=== PATIENT | female | born 1935 | race Caucasian/White ===

== ENCOUNTER 2017-06-06 20:37 | Emergency (ER) | payer MEDICARE, OTHER ==
[~2017-06-06] VITALS: Ht 170.2 cm; Wt 61.2 kg
[~2017-06-06 20:37] MED LIST: ASPI-807 PO; ROSU5TAB; TRAM50TA; VALS40TA4 PO
[2017-06-06 20:53] VITALS: BP 121/73
[2017-06-06] MEDS ORDERED: HYDROCODONE/APAP 5/325MG 1 EACH TABLET ONE (21:52)
[2017-06-06] MEDS ORDERED: HYDROCODONE/APAP 5/325MG 1 EACH TABLET PO ONE (22:00)
== END 2017-06-06 22:00 | disposition home or self-care (01) ==
LOC: ER 20:37
DX: S92.405A Nondisplaced unspecified fracture of left great toe, initial encounter for closed fracture (principal); I10 Essential (primary) hypertension; E78.00 Pure hypercholesterolemia, unspecified; Z79.82 Long term (current) use of aspirin; W20.8XXA Other cause of strike by thrown, projected or falling object, initial encounter; Y93.89 Activity, other specified; Y92.89 Other specified places as the place of occurrence of the external cause; Y99.8 Other external cause status
CPT/HCPCS: 73630; 99284; A4606; Z7610

== ENCOUNTER 2018-11-01 12:53 | Inpatient (IN) | payer MEDICARE, OTHER ==
[~2018-11-01] VITALS: Ht 142.2 cm; Wt 58.1 kg
[~2018-11-01 12:53] MED LIST changes: -ROSU5TAB; +ROSU5TAB PO; -TRAM50TA; +TRAM50TA PO
--- NOTE | 2018-11-01 12:54 | NUR ---
PT [id number], TRIPPED AND FELL IN THE PARKING LOT, -KO, C/O R KNEE PAIN, PT IS AAOX3, NOT IN RESPIRATORY DISTRESS, V/S STABLE, KEPT RESTED AND COMFORTABLE, WILL CONTINUE TO MONITOR.
--- NOTE | 2018-11-01 13:05 | NUR ---
JUAN LEO AT BEDSIDE FOR EVAL.
[2018-11-01] MEDS ORDERED: ONDANSETRON 4 MG TAB.RAPDIS ONE (13:09)
[2018-11-01] MEDS ORDERED: MORPHINE SULFATE INJ 2 MG/ML DISP.SYRIN ONE ×2 (13:09→13:44)
--- NOTE | 2018-11-01 13:15 | NUR ---
BRAND SPECIALIST AT BEDSIDE FOR XRAY.
[2018-11-01] MEDS ORDERED: MORPHINE SULFATE INJ 2 MG/ML DISP.SYRIN IM ONE (13:30)
[2018-11-01] MEDS ORDERED: ONDANSETRON 4 MG TAB.RAPDIS PO ONE (13:30)
[2018-11-01 13:58] LABS: BASOPHILS % (AUTO) 0.5 % (0.0-2.0); EOSINOPHILS % (AUTO) 0.6 % (0.0-6.0); HEMATOCRIT 42 % (33-45); HEMOGLOBIN 13.8 g/dL (11.5-14.8); LYMPHOCYTES # (AUTO) 1.1 /CMM (0.8-4.8); LYMPHOCYTES % (AUTO) 12.5 % (20.0-44.0); MEAN CORPUSCULAR HGB CONC 33 g/dl (31.0-36.0); MEAN CORPUSCULAR VOLUME 94 fL (82-100); MONOCYTES # (AUTO) 0.6 /CMM (0.1-1.30); MONOCYTES % (AUTO) 7.2 % (2.0-12.0); NEUTROPHILS # (AUTO) 6.8 /CMM (1.8-8.9); NEUTROPHILS % (AUTO) 79.2 % (43.0-81.0); PLATELET COUNT (AUTO) 218 /CMM (150-450); RED BLOOD CELL COUNT(AUTO) 4.46 MIL/uL (4.0-5.2); WHITE BLOOD COUNT (AUTO) 8.6 K/uL (4.3-11.0)
[2018-11-01] MEDS ORDERED: MORPHINE SULFATE INJ 2 MG/ML DISP.SYRIN IV ONE (14:00)
--- NOTE | 2018-11-01 14:00 | NUR ---
IV LINE ESTABLISHED, BLOOD DRAWNED AND SENT TO LAB.
[2018-11-01] MEDS ORDERED: HYDR-4354 PO (14:07)
[2018-11-01 14:11] LABS: CARBON DIOXIDE 29 mmol/L (21-32); CHLORIDE 103 mmol/L (98-107); GLUCOSE 109 mg/dL (74-106); POTASSIUM 4.6 mmol/L (3.5-5.1); SODIUM SERUM 137 mmol/L (136-145); UREA NITROGEN, BLOOD 24 mg/dL (7-18)
--- NOTE | 2018-11-01 14:48 | NUR ---
ASKED NURSING SUP FOR MEDSURG BED
--- NOTE | 2018-11-01 14:53 | NUR ---
NGOZI CERVANTES RN L AND D FOR THIS PATIENT
--- NOTE | 2018-11-01 15:58 | NUR ---
EPIC PAGED NORAH DNP
--- NOTE | 2018-11-01 16:02 | NUR ---
308-1 PATELLAR FRACTURE NORAH DNP
--- NOTE | 2018-11-01 16:34 | NUR ---
CALLED SHASHANK PAGED MEDICAL CODING INSTRUCTOR NORAH
--- NOTE | 2018-11-01 16:42 | NUR ---
CALLED LILLIANA FOR ROOM NUMBER FOR ADMISSION. [phone] GEORGE
--- NOTE | 2018-11-01 17:18 | NUR ---
REPORT GIVEN TO SARA MEJIA FOR YONIS.
[2018-11-01] MEDS ORDERED: MAG HYDROX/AL HYDROX/SIMETH 30 ML UDC PO PRN (18:00)
[2018-11-01] MEDS ORDERED: ONDANSETRON HCL/PF 4 MG/2 ML VIAL IVP PRN (18:00)
[2018-11-01] MEDS ORDERED: MAGNESIUM HYDROXIDE 30 ML UDC PO PRN (18:00)
[2018-11-01] MEDS ORDERED: Z GUARD REMEDY 2 OZ OINT TP PRN (18:00)
[2018-11-01] MEDS ORDERED: ZOLPIDEM TARTRATE 5 MG TABLET PO PRN (18:00)
--- NOTE | 2018-11-01 18:15 | NUR ---
MS STEAK TENDERIZER MACHINE NOTES Patient received from ER for right patellar fracture confirmed by imaging d/t fall in parking lot. Alert and oriented x4, Farsi preferred but understand basic macedonian. Complaints of pain on RLE and Left shoulder. Skin body assessment EXCEPT for back - refused to be assessed by patient due to pain. RLE on brace to keep immobilize. NPO after midnight for more test per DNP. Belongings checked by WAXER FLOOR. Photos taken. DNP made aware of arrival to unit. Assisted to make patient comfortable. Kept patient clean and dry. Safety measures in place. Bed in lowest position with bed alarm on and call light within reach. Will continue to monitor and assess patient. Will endorse to odell shift nurse Addendum: 11/01/18 at 1938 by ERWIN ALVAREZ RN Patient arrived in unit @1535. Endorsed to odell shift nurse. 134/68 69 18 98.2 95% room air
--- NOTE | 2018-11-01 19:30 | NUR ---
MSRN FULLY AWAKE, SEVERE RIGHT LEG PAIN UPON MINIMAL MOVEMENT. REPOSTIONED FOR COMFORT, PREFERS USING DIAPER TO VOID THAN BEDPAN SEC TO LEG PAIN. AFFECTED LEG WITH IMMOBILIZER, KEPT IN PLACE. SEEN BY TEACHER THEATER ARTS EARLIER, WILL KEEP PATIENT NPO ORDERED.
[2018-11-01 20:18] VITALS: BP 140/58
[2018-11-01] MEDS: IV NS 0.9% 1,000 ML IV PRN (20:20)
[2018-11-01] MEDS: MORPHINE SULFATE INJ 2 MG/ML DISP.SYRIN IV PRN (20:20)
--- NOTE | 2018-11-01 20:20 | NUR ---
MSRN MEDICATED WITH MORPHINE 2 MG IVP FOR RIGHT LEG PAIN. COMPLETE BEDREST. KEPT COMFORTABLE.
[2018-11-01] MEDS: HYDROCODONE/APAP 5/325MG 1 EACH TABLET PO PRN (23:34)
--- NOTE | 2018-11-01 23:36 | NUR ---
MSRN VERBALIZES SEVERE RIGHT LEG PAIN, NORCO 1 TAB PO GIVEN. PAIN MGT REVIEWED WITH PATIENT
[2018-11-02] MEDS: MORPHINE SULFATE INJ 2 MG/ML DISP.SYRIN IV PRN ×3 (00:51→15:57)
--- NOTE | 2018-11-02 00:59 | NUR ---
MSRN PER PATIENT NORCO DID NOT HELP HER PAIN. WANTED TO TAKE OWN MED, STATED SHE TAKES TRAMADOL AT HOME . HAVE HOME MEDS KEPT FOR PHARMACY SAFETY. MORPHINE 2MG IVP ADMINISTERED THIS TIME. STAYED WITH PATIENT FOR AWHILE.
--- NOTE | 2018-11-02 06:00 | NUR ---
MSRN AWAKENED WITH SEVERE PAIN ON RIGHT KNEE, MORPHINE 2MG IVP GIVEN SLOWLY.
[2018-11-02 06:45] LABS: BASOPHILS % (AUTO) 0.1 % (0.0-2.0); HEMATOCRIT 40 % (33-45); HEMOGLOBIN 13.4 g/dL (11.5-14.8); LYMPHOCYTES % (AUTO) 9.9 % (20.0-44.0); MEAN CORPUSCULAR HGB CONC 34 g/dl (31.0-36.0); MEAN CORPUSCULAR VOLUME 93 fL (82-100); MONOCYTES # (AUTO) 0.7 /CMM (0.1-1.30); MONOCYTES % (AUTO) 7.1 % (2.0-12.0); NEUTROPHILS # (AUTO) 8.1 /CMM (1.8-8.9); NEUTROPHILS % (AUTO) 82.9 % (43.0-81.0); PLATELET COUNT (AUTO) 210 /CMM (150-450); RED BLOOD CELL COUNT(AUTO) 4.28 MIL/uL (4.0-5.2); WHITE BLOOD COUNT (AUTO) 9.8 K/uL (4.3-11.0)
--- NOTE | 2018-11-02 07:10 | NUR ---
MSRN ENDORESED TO INCOMING RN FOR CONTINUITY OF CARE
[2018-11-02 07:17] LABS: CALCIUM, SERUM 8.7 mg/dL (8.5-10.1); CARBON DIOXIDE 26 mmol/L (21-32); CHLORIDE 102 mmol/L (98-107); GLUCOSE 129 mg/dL (74-106); MAGNESIUM 1.8 mg/dL (1.8-2.4); PHOSPHORUS 3.7 mg/dL (2.5-4.9); POTASSIUM 4.9 mmol/L (3.5-5.1); SODIUM SERUM 136 mmol/L (136-145); UREA NITROGEN, BLOOD 22 mg/dL (7-18)
[2018-11-02 07:25] LABS: CHOLESTEROL 94 mg/dL (<200); HDL CHOLESTEROL 44 mg/dL (40-60); LDL 47 mg/dL (0-99); TRIGLYCERIDES 30 mg/dL (30-150)
--- NOTE | 2018-11-02 07:30 | NUR ---
RN MS NOTES PT IN BED, AWAKE, ALERT AND ORIENTED, NOT IN DISTRESS, PT WANTS TO SEE THE DOCTOR, EXPLAINED PLAN OF CARE TO PT, CALL LIGHT WITHIN REACH, NEEDS ATTENDED.
[2018-11-02 08:00] VITALS: BP 133/65
[2018-11-02] MEDS: ASPIRIN 81 MG TAB.CHEW PO SCH (08:44)
[2018-11-02] MEDS: VALSARTAN 40 MG TABLET PO SCH (08:44)
[2018-11-02] MEDS: ATORVASTATIN 10 MG TABLET PO SCH (08:44)
[2018-11-02] MEDS: HYDROCODONE/APAP 5/325MG 1 EACH TABLET PO PRN ×2 (08:53→18:49)
[2018-11-02] MEDS: IV NS 0.9% 1,000 ML IV PRN ×2 (08:57→21:40)
[2018-11-02] MEDS ORDERED: VALSARTAN 40 MG TABLET PO SCH (09:00)
--- NOTE | 2018-11-02 11:44 | NUR ---
RN MS NOTES PT IN BED, NO COMPLAINT AT THIS TIME, NOT IN DISTRESS, SEEN BY KB LEO, PLAN OF CARE DISCUSSED WITH PT, VERBALIZED UNDERSTANDING.
[2018-11-02 16:00] VITALS: BP 148/67
--- NOTE | 2018-11-02 19:00 | NUR ---
RN MS NOTES PT IN BED, AWAKE, ALERT AND ORIENTED, PAIN MEDS GIVEN FOR PAIN MANAGEMENT, RIGHT LEG IMMOBILIZER IN PLACE AT ALL TIMES, NOT IN DISTRESS, RECEIVED ORDERS FROM KB LEO TO OBTAIN CONSENT FOR ORIF OF RIGHT PATELLAR FX TO BE DONE ON WEDNESDAY AT 2PM BY DR. SERNA, PT INFORMED, CONSENTS SIGNED, PM CARE PROVIDED, ALL NEEDS ATTENDED.
--- NOTE | 2018-11-02 19:30 | NUR ---
MS RN NOTES RECEIVED ON BED A/O X4.FARSI SPEAKING,UNDERSTAND GUATEMALAN.S/P FALL AT PARKING LOT AND SUSTAINED RIGHT PATELLAR FRACTURE,PLANNED SURGERY ON SATURDAY 11/[address] SERNA,CONSENT ON CHART.IVF INFUSING WELL ON LEFT AC #20 VIA IV PUMP.PAIN @7/10 ON PAIN SCALE,WAS JUST MEDICATED WITH NORCO 5/10 @1849.CALL LIGHT IN REACH,NEEDS ANTICIPATED.
[2018-11-02 20:00] VITALS: BP 156/66
--- NOTE | 2018-11-02 22:00 | NUR ---
MS RN NOTES OFFERED TO BE REPOSITION BUT REFUSED.RIGHT KNEE IMMOBILIZER IN USED.
[2018-11-03] MEDS: MORPHINE SULFATE INJ 2 MG/ML DISP.SYRIN IV PRN ×2 (00:19→10:34)
--- NOTE | 2018-11-03 00:19 | NUR ---
MS RN NOTES PAIN MANAGEMENT C/O PAIN ON RIGHT LEG 8/10 ON PAIN SCALE,MORPHINE 2MG IV GIVEN ORDERED FOR SEVERE PAIN
[2018-11-03] MEDS: HYDROCODONE/APAP 5/325MG 1 EACH TABLET PO PRN (03:22)
--- NOTE | 2018-11-03 03:27 | NUR ---
RN NOTES COMPLAINED OF PAIN ON THE RIGHT LEG- NORCO 5/325MG PO GIVEN ORDERED, V/S STABLE
--- NOTE | 2018-11-03 04:00 | NUR ---
MS RN NOTES C/O NO BOWEL MOVEMENT FOR 10 DAYS,OFFERED MILK OF MAGNESIA BUT REFUSED.
--- NOTE | 2018-11-03 06:06 | NUR ---
MS RN NOTES ON BED SLEEPING,SNORING THIS TIME WITH NORCO.IVF IN PROGRESS.IMMOBILIZER STILL IN PLACE ON THE RIGHT LEG AWAITING SURGICAL INTERVENTION ON WEDNESDAY.IN NO ACUTE DISTRESS.CALL LIGHT IN REACH,NEEDS ATTENDED.WILL ENDORSE TO DAY NURSE FOR YONIS
[2018-11-03 06:33] LABS: BASOPHILS % (AUTO) 0.2 % (0.0-2.0); EOSINOPHILS % (AUTO) 0.3 % (0.0-6.0); HEMATOCRIT 41 % (33-45); HEMOGLOBIN 13.6 g/dL (11.5-14.8); LYMPHOCYTES # (AUTO) 1.1 /CMM (0.8-4.8); LYMPHOCYTES % (AUTO) 11.1 % (20.0-44.0); MEAN CORPUSCULAR HGB CONC 33 g/dl (31.0-36.0); MEAN CORPUSCULAR VOLUME 93 fL (82-100); MONOCYTES # (AUTO) 0.9 /CMM (0.1-1.30); MONOCYTES % (AUTO) 8.7 % (2.0-12.0); NEUTROPHILS # (AUTO) 8.1 /CMM (1.8-8.9); NEUTROPHILS % (AUTO) 79.7 % (43.0-81.0); PLATELET COUNT (AUTO) 213 /CMM (150-450); RED BLOOD CELL COUNT(AUTO) 4.38 MIL/uL (4.0-5.2); WHITE BLOOD COUNT (AUTO) 10.2 K/uL (4.3-11.0)
[2018-11-03 07:04] LABS: CALCIUM, SERUM 8.2 mg/dL (8.5-10.1); CARBON DIOXIDE 27 mmol/L (21-32); CHLORIDE 107 mmol/L (98-107); CREATININE 0.8 mg/dL (0.6-1.3); GLUCOSE 121 mg/dL (74-106); MAGNESIUM 1.9 mg/dL (1.8-2.4); POTASSIUM 4.2 mmol/L (3.5-5.1); SODIUM SERUM 140 mmol/L (136-145); UREA NITROGEN, BLOOD 18 mg/dL (7-18)
--- NOTE | 2018-11-03 07:20 | NUR ---
M/S RN NOTES PATIENT AWAKE IN BED, NO RESPIRATORY DISTRESS NOTED, DENIES ANY PAIN AT THIS TIME. SKIN WARM TO TOUCH. IVF OF NS INFUSING AT 75ML/HR ON THE LAC #20G. PATIENT'S NEEDS ATTENDED. BED ON LOWEST LOCKED POSITION, CALL LIGHT WITHIN REACH. WILL CONTINUE TO MONITOR.
--- NOTE | 2018-11-03 07:45 | NUR ---
M/S RN NOTES SWETHA QUILES PAC ORDERED FOR PATIENT TO BE NPO FOR A POSSIBLE SURGERY THIS AFTERNOON.
[2018-11-03 08:00] VITALS: BP 151/65
[2018-11-03] MEDS: ASPIRIN 81 MG TAB.CHEW PO SCH (09:00)
[2018-11-03] MEDS: VALSARTAN 40 MG TABLET PO SCH (09:00)
[2018-11-03] MEDS: ATORVASTATIN 10 MG TABLET PO SCH (09:00)
--- NOTE | 2018-11-03 14:15 | NUR ---
M/S RN NOTES PATIENT WENT TO SURGERY, VSS, NO RESPIRATORY DISTRESS, DENIES ANY PAIN AT THIS. PATIENT'S CHART AND REPORT GIVEN TO SITA.
[2018-11-03] MEDS ORDERED: MIDAZOLAM HCL 2 MG/2ML VIAL ONE (14:28)
[2018-11-03] MEDS ORDERED: FENTANYL PF 250MCG/5ML AMPUL ONE (14:29)
[2018-11-03] MEDS ORDERED: BACITRACIN 50000 UNITS/VIAL ONE (15:24)
[2018-11-03] MEDS ORDERED: BUPIVACAINE 0.5 % PF 150 MG/30 ML VIAL ONE (15:24)
[2018-11-03] MEDS ORDERED: hydrALAZINE HCL IV 20 MG VIAL ONE (17:39)
[2018-11-03 17:40] VITALS: BP 141/68
--- NOTE | 2018-11-03 17:40 | NUR ---
M/S RN NOTES PATIENT CAME FROM SURGERY, VITAL SIGNS TAKEN BP 141/68, HR 92, T 98.4, RR 18, O2 97% NO RESPIRATORY DISTRESS NOTED, NO C/O PAIN AT THIS TIME. NO NAUSEA OR VOMITING. PATIENT'S DRESSING CLEAN, DRY, AND INTACT. WILL CONTINUE TO MONITOR.
[2018-11-03 17:55] VITALS: BP 138/68
[2018-11-03 18:10] VITALS: BP 136/67
[2018-11-03] MEDS: IV LR 1000 ML 1,000 ML IV PRN (18:12)
[2018-11-03] MEDS ORDERED: HYDROCODONE/APAP 5/325MG 1 EACH TABLET PO PRN (18:30)
[2018-11-03 18:40] VITALS: BP 140/68
--- NOTE | 2018-11-03 19:15 | NUR ---
M/S RN NOTES PATIENT RESTING, LYING IN BED. NO RESPIRATORY DISTRESS NOTED, NO C/O PAIN. SKIN WARM TO TOUCH. IVF OF LR INFUSING AT 75ML/HR ON THE RFA #22G, INTACT, NO REDNESS, NO INFILTRATION. PATIENT'S NEEDS ATTENDED. MD ORDERS CARRIED OUT. BED ON LOWEST LOCKED POSITION, CALL LIGHT WITHIN REACH. WILL ENDORSE TO ONCOMING NURSE.
--- NOTE | 2018-11-03 19:30 | NUR ---
MS RN NOTES RECEIVED ON SITTING POSITION IN BED,A/O X4,BREATHING NORMAL,S/P ORIF OF RIGHT PATELLAR FRACTURE TODAY 11/03/2018.SURGICAL SITE WITH DRESSING INTACT WRAPPED WITH ELASTIC BANDAGE.KNEE IMMOBILIZER IN USED.DENIES PAIN AT THE MOMENT.O2 SAT 97% ON 2 LITERS /NC.WILL CONTINUE TO MONITOR FOR PAIN MANAGEMENT.
[2018-11-03 20:00] VITALS: BP 145/62
[2018-11-03] MEDS: ANCEF 1 GM/50 ML D5W IV SCH ×2 (21:32)
--- NOTE | 2018-11-03 22:00 | NUR ---
MS RN NOTES AWAKE,OFFERED PAIN MEDICINE BUT REFUSED.
[2018-11-04] MEDS: ANCEF 1 GM/50 ML D5W IV SCH ×2 (05:30)
--- NOTE | 2018-11-04 06:25 | NUR ---
MS RN NOTES SLEPT WELL AT NIGHT,PAIN TOLERABLE.IS AT BEDSIDE.ENCOURAGED TO USE IT WHILE AWAKE FOR LUNG EXERCISE.DAIGLE CATH DRAINS WELL.KNEE IMMOBILIZER IN USED.IVF IN PROGRESS.IN NO ACUTE DISTRESS.WILL ENDORSE TO MILADIS RUIZ FOR YONIS.
--- NOTE | 2018-11-04 07:30 | NUR ---
MS RN Opening Note Patient currently resting in bed with eyes open in Semi-Fowlers position, no acute distress noted. Aspiration precautions maintained. Easily arousable to verbal and tactile stimuli. Alert and oriented x 4, able to make needs known. Respirations even and unlabored on room air. Peripherial IV access to the right forearm arm, intact, patent and infusing fluids. Dressing in place to right leg, knee immobilizer in place. Incentive spirometer at bedside. Hearn catheter in place, intact and patent draining clear, yellow urine. Safety and fall precautions in place: bed in lowest and locked position, side rails up x2, bed alarm on, call light and personal possessions in reach, room well lit, floor clutter-free. Patient currently clean, dry and comfortable, on low-air loss mattress. Will continue to monitor and intervene as needed.
[2018-11-04 08:00] VITALS: BP 134/70
[2018-11-04] MEDS: MORPHINE SULFATE INJ 2 MG/ML DISP.SYRIN IV PRN ×3 (09:09→20:34)
[2018-11-04] MEDS: ASPIRIN 81 MG TAB.CHEW PO SCH (09:18)
[2018-11-04] MEDS: ATORVASTATIN 10 MG TABLET PO SCH (09:18)
[2018-11-04] MEDS: VALSARTAN 40 MG TABLET PO SCH (09:19)
[2018-11-04] MEDS: ENOXAPARIN SODIUM 40 MG/0.4 ML DISP.SYRIN SQ SCH (09:38)
[2018-11-04 13:43] LABS: BASOPHILS % (AUTO) 0.1 % (0.0-2.0); HEMATOCRIT 35 % (33-45); HEMOGLOBIN 11.6 g/dL (11.5-14.8); LYMPHOCYTES # (AUTO) 0.9 /CMM (0.8-4.8); LYMPHOCYTES % (AUTO) 8.3 % (20.0-44.0); MEAN CORPUSCULAR HGB CONC 33 g/dl (31.0-36.0); MEAN CORPUSCULAR VOLUME 93 fL (82-100); MONOCYTES # (AUTO) 1.5 /CMM (0.1-1.30); MONOCYTES % (AUTO) 13.6 % (2.0-12.0); NEUTROPHILS # (AUTO) 8.7 /CMM (1.8-8.9); PLATELET COUNT (AUTO) 191 /CMM (150-450); RED BLOOD CELL COUNT(AUTO) 3.76 MIL/uL (4.0-5.2); WHITE BLOOD COUNT (AUTO) 11.2 K/uL (4.3-11.0)
[2018-11-04] MEDS: IV LR 1000 ML 1,000 ML IV PRN (14:51)
[2018-11-04 16:00] VITALS: BP 132/70
--- NOTE | 2018-11-04 18:45 | NUR ---
M/S RN NOTES PATIENT AWAKE IN BED, IN NO RESPIRATORY DISTRESS, NO C/O PAIN AT THIS TIME. IVF OF LR RUNNING AT 75ML/HR. SKIN WARM TO TOUCH. DRESSING CLEAN, DRY AND INTACT. KNEE IMMOBILIZER ON THE RT LEG ORDERED AND OFFLOADED WITH A PILLOW. F/C DRAINING CLEAR, YELLOW URINE. PATIENT'S NEEDS MET. BED ON LOWEST LOCKED POSITION, CALL LIGHT WITHIN REACH. WILL ENDORSE TO ONCOMING NURSE.
--- NOTE | 2018-11-04 19:00 | NUR ---
MS RN NOTES RECEIVED LAYING COMFORTABLY ON BED ON FOWLERS POSITION,A/O X4,BREATHING REGULAR NOT IN ANY FORM OF DISTRESS.S/P ORIF RIGHT PATELLAR FRACTURE 0N 6/6,DRESSING INTACT AND DRY,KNEE IMMOBILIZER IN USED ELEVATED ON PILLOW.DENIES PAIN AT THE MOMENT.DAIGLE CATHETER IN PLACE DRAINING YELLOWISH URINE OUTPUT.IVF LR AT75ML HR RATE IN PROGRESS ON RIGHT ARM,SITE PATENT.CALL LIGHT IN REACH,NEEDS ANTICIPATED.
[2018-11-04 20:00] VITALS: BP 148/64
[2018-11-04 20:17] VITALS: BP 148/64
[2018-11-04] MEDS: ACETAMINOPHEN 325 MG TABLET PO PRN (20:34)
--- NOTE | 2018-11-04 20:34 | NUR ---
MS RN NOTES PAIN MANAGEMENT C/O RIGHT LEG POST OP PAIN 10/10 ON PAIN SCALE,MORPHINE 2MG IV GIVEN ORDERED.
--- NOTE | 2018-11-04 20:45 | NUR ---
MS RN NOTES ORAL TEMP OF 100.1,TYLENOL 650MG PO GIVEN ORDERED.
[2018-11-05] MEDS: IV LR 1000 ML 1,000 ML IV PRN (04:22)
[2018-11-05] MEDS: MORPHINE SULFATE INJ 2 MG/ML DISP.SYRIN IV PRN ×2 (05:04→09:51)
--- NOTE | 2018-11-05 05:04 | NUR ---
MS RN NOTES C/O PAIN ON RIGHT LEG 8/10 ON PAIN SCALE.MORPHINE 2MG IV GIVEN. MORNING CARE RENDERED WITH ANNE-MARIE VENDING MACHINE TECHNICIAN,TOLERATED WELL.NO REDNESS ON SACRAL AREA,APPLIED MEPILEX ON TAILBONE AREA FOR SKIN PROTECTION.
--- NOTE | 2018-11-05 06:02 | NUR ---
MS RN NOTES ON BED SLEEPING.PAIN MANAGEMENT EFFECTIVE.ENCOURAGED TO USE INCENTIVE SPIROMETRY FOR LUNG EXERCISE WHILE AWAKE.LATEST ORAL TEMPERATURE 98.3.NO KNEE FLEXION FOR [address] BOYLE AND FOLLOW UP IN 2 WEEKS FOR STAPLE REMOVAL.POSSIBLE D/C TO [facility] FOR AMBULATION.IN NO ACUTE DISTRESS.WILL ENDORSE TO DAY NURSE FOR YONIS.
[2018-11-05 07:24] LABS: ALANINE AMINOTRANSFERASE 15 U/L (12-78); ALBUMIN 2.1 g/dL (3.4-5.0); ALKALINE PHOSPHATASE 51 U/L (46-116); ASPARTATE AMINOTRANSFERASE 21 U/L (15-37); BILIRUBIN,TOTAL 1.5 mg/dL (0.2-1.0); CALCIUM, SERUM 8.2 mg/dL (8.5-10.1); CARBON DIOXIDE 28 mmol/L (21-32); CHLORIDE 105 mmol/L (98-107); CREATININE 0.7 mg/dL (0.6-1.3); GLUCOSE 100 mg/dL (74-106); MAGNESIUM 1.8 mg/dL (1.8-2.4); PHOSPHORUS 2.3 mg/dL (2.5-4.9); POTASSIUM 3.9 mmol/L (3.5-5.1); SODIUM SERUM 137 mmol/L (136-145); TOTAL PROTEIN, SERUM 5.8 g/dL (6.4-8.2); UREA NITROGEN, BLOOD 14 mg/dL (7-18)
--- NOTE | 2018-11-05 07:30 | NUR ---
RN MS NOTES PT IN BED, ASLEEP, EASY TO AROUSE, ALERT AND ORIENTED, NO COMPLAINTS AT THIS TIME, RESPIRATIONS NORMAL, CALL LIGHT WITHIN REACH, IMMOBILIZER ON AT RIGHT KNEE, KEPT COMFORTABLE, NEEDS ATTENDED.
[2018-11-05 08:00] VITALS: BP 145/72
[2018-11-05] MEDS: ATORVASTATIN 10 MG TABLET PO SCH (08:39)
[2018-11-05] MEDS: VALSARTAN 40 MG TABLET PO SCH (08:39)
[2018-11-05] MEDS: ASPIRIN 81 MG TAB.CHEW PO SCH (08:39)
[2018-11-05] MEDS: ENOXAPARIN SODIUM 40 MG/0.4 ML DISP.SYRIN SQ SCH (08:48)
--- NOTE | 2018-11-05 10:19 | NUR ---
RN MS NOTES PT IN BED, AWAKE, ALERT AND ORIENTED, PAIN MEDICATION GIVEN FOR PAIN MANAGEMENT, SEEN BY DR. ALMAZAN, NEW ORDERS GIVEN, PT SEEN BY PHYSICAL THERAPIST, CALL LIGHT WITHIN REACH, NEEDS ATTENDED.
[2018-11-05] MEDS ORDERED: ALBUTEROL FS 2.5 MG/3 ML VIAL.NEB NEB PRN (10:30)
[2018-11-05] MEDS ORDERED: IPRATROPIUM NEB FS 0.5 MG/2.5 ML AMPUL.NEB NEB PRN (10:30)
[2018-11-05] MEDS ORDERED: K PHOS NEUTRAL 250 MG TABLET PO ONE (13:00)
[2018-11-05] MEDS ORDERED: POLYETHYLENE GLYCOL 3350 17 GM POWD.PACK PO PRN (15:30)
[2018-11-05] MEDS ORDERED: BISACODYL SUPP (10 MG) 10 MG/SUPP.RECT SUPP.RECT RC PRN (15:30)
[2018-11-05 16:00] VITALS: BP 142/69
--- NOTE | 2018-11-05 18:03 | NUR ---
RN MS NOTES PT IN BED, RESTING, NO COMPLAINT OF PAIN AT THIS TIME, GRANDSON AT BEDSIDE, COMPLAINS OF CONSTIPATION, DR. ALMAZAN INFORMED, ORDERS GIVEN, NOTED AND CARRIED OUT, PM CARE PROVIDED, F/C IN PLACE, DRAINING WELL, TOLERATING CURRENT DIET WELL, CALL LIGHT WITHIN REACH.
--- NOTE | 2018-11-05 18:10 | NUR ---
RN MS NOTES PT STILL WITH WHEEZING, NO COMPLAINT OF SOB, OFFERED BREATHING TREATMENT 2X BUT PT REFUSED, STATED THAT SHE DOES NOT NEED IT NOW, NO SHORTNESS OF BREATH NOTED.
[2018-11-05] MEDS: ACETAMINOPHEN 325 MG TABLET PO PRN (19:57)
[2018-11-05 20:00] VITALS: BP 143/74
--- NOTE | 2018-11-05 20:00 | NUR ---
MS RN NOTE: PATIENT RESTING IN BED NO ACUTE DISTRESS NOTED. BREATHING EVEN AND UNLABORED, NO SOB NOTED. IV TO RFA IN PLACE. PATIENT NOTED WITH TEMPERATURE OF 100.1, TYLENOL 650MG ORAL GIVEN PER MD ORDER. COOLING MEASURES PROVIDED. DAIGLE CATHETER IN PLACE, EMPTY AT THIS TIME. BED LOCKED AND IN LOWEST POSITION, CALL LIGHT IN REACH. WILL CONTINUE TO MONITOR.
--- NOTE | 2018-11-05 22:30 | NUR ---
MS RN NOTE: PATIENT TEMPERATURE RECHECKED, NOW 97.8. WILL CONTINUE TO MONITOR.
--- NOTE | 2018-11-06 06:05 | NUR ---
MS RN NOTE: PATIENT RESTING IN BED NO ACUTE DISTRESS NOTED. BREATHING EVEN AND UNLABORED, NO SOB NOTED. IV TO RFA IN PLACE. DAIGLE CATHETER IN PLACE. BED LOCKED AND IN LOWEST POSITION, CALL LIGHT IN REACH. WILL ENDORSE TO DAY NURSE TO CONTINUE WITH PLAN OF CARE.
--- NOTE | 2018-11-06 07:29 | NUR ---
Nurse Notes: report from the night nurse Shirin Guevara RN, IV was stopped. is ordered to infusing at 75 cc per hour. Knee Immoblizer to be worn for 2 weeks. No Flexion.
[2018-11-06 08:00] VITALS: BP 152/55
[2018-11-06] MEDS: MORPHINE SULFATE INJ 2 MG/ML DISP.SYRIN IV PRN (08:14)
--- NOTE | 2018-11-06 08:14 | NUR ---
Nurse Notes: patient asked for her Morphine 2 mg IV, patient does not want her [place]. complaining of pain in right patella.
[2018-11-06] MEDS: ATORVASTATIN 10 MG TABLET PO SCH (08:53)
[2018-11-06] MEDS: ASPIRIN 81 MG TAB.CHEW PO SCH (09:01)
[2018-11-06] MEDS: VALSARTAN 40 MG TABLET PO SCH (09:01)
[2018-11-06 09:41] VITALS: BP 136/65
[2018-11-06] MEDS: ENOXAPARIN SODIUM 40 MG/0.4 ML DISP.SYRIN SQ SCH (10:04)
[2018-11-06 16:00] VITALS: BP 129/58
--- NOTE | 2018-11-06 16:50 | NUR ---
Nurse Notes: patient was given Dulcolax suppository, patient stated had no bowel movement for 14 days. once dulcolax suppository was placed. hard stool was felt. six pieces of stool was removed, size of small elise, diaper was kept on. will get order for stool softener
[2018-11-06] MEDS: DOCUSATE SODIUM 100 MG CAPSULE PO SCH (17:34)
--- NOTE | 2018-11-06 19:00 | NUR ---
MS RN NOTE RECEIVED PT IN STABLE CONDITION, A&0 X3-4. NO SIGNS OF SOB OR DISTRESS, PT. STATES PAIN IS TOLERABLE. CURRENTLY FINISHING HER DINNER. ALL CURRENT NEEDS ATTENDED TO. BED LOW, LOCKED, UPPER RAILS UP, AND CALL LIGHT WITHIN REACH. WILL CONT. TO MONITOR.
--- NOTE | 2018-11-06 19:05 | NUR ---
SHIFT REPORT: report given to the night nurse Savannah RUIZ. patient is resting in bed, was able to have more small elise of stool. stool softener was given,
[2018-11-06 20:09] VITALS: BP 140/71
--- NOTE | 2018-11-07 06:57 | NUR ---
MS RN NOTE PT IN STABLE CONDITION, A&0 X3-4. NO SIGNS OF SOB OR DISTRESS, NO C/O PAIN. CURRENTLY IN BED, AWAKE. ALL CURRENT NEEDS ATTENDED TO. BED LOW, LOCKED, UPPER RAILS UP, AND CALL LIGHT WITHIN REACH. WILL CONT. TO MONITOR AND ENDORSE TO NEXT SHIFT FOR YONIS.
[2018-11-07 08:00] VITALS: BP 143/72
--- NOTE | 2018-11-07 08:00 | NUR ---
PATIENT NOTED WITH F/C MORE THAN 24H POSTOP. WILL NOTIFY
[2018-11-07] MEDS: ASPIRIN 81 MG TAB.CHEW PO SCH (08:56)
[2018-11-07] MEDS: DOCUSATE SODIUM 100 MG CAPSULE PO SCH (08:56)
[2018-11-07 08:57] VITALS: BP 143/72
[2018-11-07] MEDS: VALSARTAN 40 MG TABLET PO SCH (08:57)
[2018-11-07] MEDS: ATORVASTATIN 10 MG TABLET PO SCH (08:57)
[2018-11-07] MEDS: ENOXAPARIN SODIUM 40 MG/0.4 ML DISP.SYRIN SQ SCH (09:02)
--- NOTE | 2018-11-07 10:54 | NUR ---
DAIGLE CATH REMOVED PER NORAH Jackson
[2018-11-07] MEDS: MORPHINE SULFATE INJ 2 MG/ML DISP.SYRIN IV PRN ×2 (12:34→18:15)
[2018-11-07] MEDS ORDERED: Amox/Clavulanate PO (14:11)
--- NOTE | 2018-11-07 16:18 | NUR ---
REPORT CALLED TO KEL RUIZ FROM [facility]
--- NOTE | 2018-11-07 18:15 | NUR ---
PATIENT CLEARED FOR D/C TO REHAB BY . PATIENT ALERT AND ORIENTED X4, VS ARE STABLE AND WITHIN NORMAL RANGE, PATIENT ON ROOM AIR SATURATING ABOVE 96%. RIGHT KNEE IMMOBILIZER IN PLACE. DRESSING CHANGED, PICTURE TAKEN AND PLACED IN THE CHART.PATIENT INSTRUCTED TO FOLLOWUP with PCP WITHIN ONE WEEK AT [facility], FOLLOWUP WITH Dr. Henry WITHIN 1-2 WEEKS. No flexion of right knee x2 weeks, wear knee immobilizer at all times, PT per PCP with [facility] RLE with knee immobilizer at [facility].PATIENT VERBALIZED UNDERSTANDING. DISCHARGE PAPERS SIGHED, VALUABLE FORM SIGHED; ALL BELONGINGS WITH THE PATIENT INCLUDING 2 HOME MEDS. IV LINE REMOVED , ID WRIST BAND REMOVED. PATIENT PREMEDICATED BEFORE TRANSPORTATION. FAMILY INFORMED. PATIENT PICKED UP BY AMBULANCE.
[2018-11-07] MEDS ORDERED: AMOX/CLAVULANATE 875 MG TABLET PO SCH (21:00)
== END 2018-11-07 18:31 | DRG 516 ==
LOC: ER 12:54 → MED 16:25
PROVIDERS: ADMIT Hospitalist; ATTEND Hospitalist
PROC: 0QSD04Z Reposition Right Patella with Internal Fixation Device, Open Approach (ICD-10-PCS; principal; 2018-11-03)
DX: S82.041A Displaced comminuted fracture of right patella, initial encounter for closed fracture (principal); E44.1 Mild protein-calorie malnutrition; W01.0XXA Fall on same level from slipping, tripping and stumbling without subsequent striking against object, initial encounter; E78.5 Hyperlipidemia, unspecified; Y92.481 Parking lot as the place of occurrence of the external cause; I10 Essential (primary) hypertension; Z91.81 History of falling; Z96.641 Presence of right artificial hip joint; E83.39 Other disorders of phosphorus metabolism; Z68.28 Body mass index [BMI] 28.0-28.9, adult; K59.00 Constipation, unspecified; R06.2 Wheezing
CPT/HCPCS: 36415; 71045-TC; 73030-TC; 73070-TC; 73502; 73552; 73560-TC; 80048-TC; 80053-TC; 80061-TC; 82962-TC; 83735-TC; 84100-TC; 85025-TC; 85730-TC; 87081-TC; 93971-TC; 97110-TC; 97112-TC; 97116-TC; 97530-TC; A6402; G0378; J0360; J0690; J1650; J2250; J2270; J2405; J2704; J3010; J3490; J7030; J7060; J7120; Q0162

== ENCOUNTER 2020-11-06 17:56 | Inpatient (IN) | payer MEDICARE, OTHER ==
[~2020-11-06] VITALS: Ht 147.3 cm; Wt 57.8 kg
[~2020-11-06 17:56] MED LIST changes: +Amox/Clavulanate PO; +HYDR-4354 PO
--- NOTE | 2020-11-06 18:15 | NUR ---
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 97% ON 2L NC. PATIENT ASSISTED TO BED, REMOVED O2 WITH SPO2 OF 85% ON ROOM AIR. OXYGEN PLACED BACK ON FOR 4LPM VIA NC.
[2020-11-06] MEDS ORDERED: NEBI10TA2 PO (18:17)
[2020-11-06] MEDS ORDERED: ICOS1CAP PO (18:17)
[2020-11-06] MEDS ORDERED: CHOL200059 PO (18:17)
[2020-11-06] MEDS ORDERED: CLON0.1T PO (18:17)
[2020-11-06] MEDS ORDERED: IRBE300T19 PO (18:17)
[2020-11-06] MEDS ORDERED: MAGN400T26 PO (18:17)
[2020-11-06] MEDS ORDERED: AMLO-212 PO (18:17)
[2020-11-06 18:45] LABS: BASOPHILS # (AUTO) 0.1 /CMM (0.0-0.2); BASOPHILS % (AUTO) 0.6 % (0.0-2.0); EOSINOPHILS % (AUTO) 1.5 % (0.0-6.0); HEMATOCRIT 40 % (33-45); HEMOGLOBIN 13.1 g/dL (11.5-14.8); LYMPHOCYTES # (AUTO) 1.2 /CMM (0.8-4.8); LYMPHOCYTES % (AUTO) 11.6 % (20.0-44.0); MEAN CORPUSCULAR HGB CONC 33 g/dl (31.0-36.0); MEAN CORPUSCULAR VOLUME 93 fL (82-100); MONOCYTES # (AUTO) 0.8 /CMM (0.1-1.30); MONOCYTES % (AUTO) 7.6 % (2.0-12.0); NEUTROPHILS # (AUTO) 7.8 /CMM (1.8-8.9); NEUTROPHILS % (AUTO) 78.7 % (43.0-81.0); PLATELET COUNT (AUTO) 276 /CMM (150-450); RED BLOOD CELL COUNT(AUTO) 4.33 MIL/uL (4.0-5.2)
[2020-11-06 18:49] LABS: CALCIUM, SERUM 8.6 mg/dL (8.5-10.1); CARBON DIOXIDE 26 mmol/L (21-32); CHLORIDE 102 mmol/L (98-107); GLUCOSE 90 mg/dL (74-106); POTASSIUM 4.9 mmol/L (3.5-5.1); SODIUM SERUM 137 mmol/L (136-145); UREA NITROGEN, BLOOD 23 mg/dL (7-18)
[2020-11-06 19:02] LABS: ALANINE AMINOTRANSFERASE 27 U/L (12-78); ALBUMIN 3.2 g/dL (3.4-5.0); ALKALINE PHOSPHATASE 59 U/L (46-116); ASPARTATE AMINOTRANSFERASE 25 U/L (15-37); BILIRUBIN,DIRECT 0.2 mg/dL (0.0-0.2); BILIRUBIN,TOTAL 0.7 mg/dL (0.2-1.0); NT-PRO BNP 1215 pg/mL (0-125); TOTAL PROTEIN, SERUM 7.2 g/dL (6.4-8.2)
[2020-11-06] MEDS ORDERED: FUROSEMIDE 20 MG/2 ML VIAL ONE ×2 (19:20→20:37)
--- NOTE | 2020-11-06 19:21 | NUR ---
US TECH AT BEDSIDE
[2020-11-06] MEDS ORDERED: FUROSEMIDE 20 MG/2 ML VIAL IV ONE ×2 (19:30→21:00)
[2020-11-06] MEDS ORDERED: IV NS 0.9% 250 ML IV ONE (19:36)
[2020-11-06] MEDS ORDERED: CT SWABBABLE VALVE TRANS SET 1 EA INFUS.SET MC ONE (19:36)
[2020-11-06] MEDS ORDERED: IOHEXOL-350 100 ML VIAL IV ONE (19:36)
--- NOTE | 2020-11-06 19:37 | NUR ---
PT TAKEN TO CT
[2020-11-06 19:38] LABS: BILIRUBIN,URINE SMALL (NEGATIVE); COLOR,URINE ORANGE (YELLOW); LEUKOCYTE ESTERASE ,URINE Trace (NEGATIVE); NITRITE, URINE Negative (NEGATIVE); PH,URINE 7.5 (5.0-8.0); PROTEIN,URINE 30 mg/dl (NEGATIVE); UGLUCOSE Negative (NEGATIVE)
[2020-11-06 19:42] LABS: BACTERIA,URINE Few /HPF (None Seen); RBC,URINE 0-2 /HPF (0-2); SQUAMOUS EPITHELIAL CELL,UR Few /HPF (None Seen)
--- NOTE | 2020-11-06 20:39 | NUR ---
COVID RESULTS NEGATIVE
--- NOTE | 2020-11-06 21:27 | NUR ---
REPROT GIVEN TO RN ON THIRD FLOOR
[2020-11-06 21:35] VITALS: BP 143/82
--- NOTE | 2020-11-06 21:41 | NUR ---
PT WAS TRANSFERRED TO 312-2 UNDER ACLS
--- NOTE | 2020-11-06 21:41 | NUR ---
COTTON BAG SEWER ADMITTING NOTE RECEIVED REPORT FROM MARITA GEE RN. PATIENT A/OX3; FARSI SPEAKING. ON O2 VIA 3LPM VIA N/C TOLERATING WELL. SOB UPON ACTIVITY AND EXERTION. WHEEZING NOTED TO BILATERAL UPPER LUNGS. EXTERNAL LATHE MECHANIC READS NSR WITH PVC; HR AT 71. IV TO LAC #18G S/L; PATENT AND INTACT. RECEIVED LASIX AT ER. SKIN INTACT. ORIENT PATIENT TO STAFF, ROOM, AND UNIT. ALL BELONGINGS ACCOUNTED FOR. SAFETY MEASURES IN PLACE: BED IN LOWEST LOCKED POSITION, SIDE RAILS UPX2, CALL LIGHT WITHIN EASY REACH, BED ALARMS ON. PATIENT IN STABLE CONDITION, WILL CONTINUE PLAN OF CARE.
[2020-11-06 21:45] VITALS: BP 143/82
[2020-11-06] MEDS ORDERED: TEMAZEPAM 15 MG CAPSULE PO PRN (22:30)
[2020-11-06] MEDS ORDERED: ACETAMINOPHEN 325 MG TABLET PO PRN (22:30)
[2020-11-06] MEDS ORDERED: ONDANSETRON HCL/PF 4 MG/2 ML VIAL IVP PRN (22:30)
[2020-11-06] MEDS ORDERED: CLONIDINE HCL 0.1 MG TABLET PO PRN (22:30)
[2020-11-06] MEDS: ENOXAPARIN SODIUM 40 MG/0.4 ML DISP.SYRIN SQ SCH (23:23)
[2020-11-07] VITALS: BP 163/77
[2020-11-07 04:00] VITALS: BP 141/56
--- NOTE | 2020-11-07 06:00 | NUR ---
CODE ENFORCEMENT SUPERVISOR NOTE - CONSENT EDUCATED PATIENT AND AGREED FOR CONSENT TO US GUIDED THORACENTESIS. PATIENT SIGNED CONSENT FORM
[2020-11-07 06:02] LABS: BASOPHILS % (AUTO) 0.6 % (0.0-2.0); EOSINOPHILS % (AUTO) 0.5 % (0.0-6.0); HEMATOCRIT 42 % (33-45); HEMOGLOBIN 14.3 g/dL (11.5-14.8); LYMPHOCYTES # (AUTO) 1.4 /CMM (0.8-4.8); LYMPHOCYTES % (AUTO) 17.3 % (20.0-44.0); MEAN CORPUSCULAR HGB CONC 34 g/dl (31.0-36.0); MEAN CORPUSCULAR VOLUME 93 fL (82-100); MONOCYTES # (AUTO) 0.7 /CMM (0.1-1.30); MONOCYTES % (AUTO) 9.3 % (2.0-12.0); NEUTROPHILS # (AUTO) 5.7 /CMM (1.8-8.9); NEUTROPHILS % (AUTO) 72.3 % (43.0-81.0); PLATELET COUNT (AUTO) 289 /CMM (150-450); RED BLOOD CELL COUNT(AUTO) 4.54 MIL/uL (4.0-5.2); WHITE BLOOD COUNT (AUTO) 7.9 K/uL (4.3-11.0)
--- NOTE | 2020-11-07 06:09 | NUR ---
SECURITY GUARD SUPERVISOR CLOSING NOTE PATIENT A/OX3; FARSI SPEAKING. ON O2 VIA 3LPM VIA N/C TOLERATING WELL AT REST. SOB UPON ACTIVITY AND EXERTION. EXTERNAL TURF AND GROUNDS SUPERVISOR READS NSR WITH PVC; HR AT 65. IV TO LAC #18G S/L; PATENT AND INTACT. SAFETY MEASURES IN PLACE: BED IN LOWEST LOCKED POSITION, SIDE RAILS UPX2, CALL LIGHT WITHIN EASY REACH, BED ALARMS ON. PATIENT IN STABLE CONDITION, WILL ENDORSE PLAN OF CARE TO ONCOMING MORNING RN.
--- NOTE | 2020-11-07 06:18 | NUR ---
MANAGER CORE NOTE - DAILY WEIGHT RECEIVED LASIX IN ER. MORNING DAILY WEIGHT: 154LB.
[2020-11-07 06:34] LABS: THYROID STIMULATING HORMONE 0.965 uIU/mL (0.358-3.74)
--- NOTE | 2020-11-07 07:15 | NUR ---
RN NOTES PATIENT IN BED RESTING, AWAKE AND VERBALLY RESPONSIVE, ABLE TO MAKE NEEDS KNOWN. BREATHING EVEN AND UNLABORED, ON O2 AT 3L VIA N/C, NO RESPIRATORY DISTRESS. ON TELE MONITORING, READING OF SR, HR IN THE MID 70'S, NO CARDIAC DISTRESS NOTED. FOR US GUIDED THORACENTESIS PROCEDURE TODAY. SAFETY MEASURES IN PLACE. WILL CONTINUE TO MONITOR.
--- NOTE | 2020-11-07 07:19 | NUR ---
RN NOTES SLEEVE MAKER AT BEDSIDE FOR US THYROID.
[2020-11-07 08:00] VITALS: BP 153/86
[2020-11-07] MEDS ORDERED: ALBUTEROL FS 2.5 MG/0.5 ML VIAL.NEB NEB PRN (08:00)
[2020-11-07] MEDS: CHOLECALCIFEROL 1,000 UNIT TABLET (VIT D3) PO SCH (08:12)
[2020-11-07] MEDS: PANTOPRAZOLE 40 MG TABLET.DR PO SCH (08:12)
[2020-11-07] MEDS: MAGNESIUM OXIDE 400 MG TABLET PO SCH (08:12)
[2020-11-07] MEDS: ASPIRIN EC 81 MG TABLET.DR PO SCH (08:12)
[2020-11-07] MEDS: ATORVASTATIN 10 MG TABLET PO SCH (08:13)
[2020-11-07] MEDS: DOCUSATE SODIUM 100 MG CAPSULE PO SCH ×2 (08:13→16:34)
[2020-11-07] MEDS: METOPROLOL TARTRATE 50 MG TABLET PO SCH ×2 (08:14→21:05)
[2020-11-07] MEDS: LOSARTAN POTASSIUM 50 MG TABLET PO SCH (08:14)
[2020-11-07] MEDS: AMLODIPINE BESYLATE 5 MG TABLET PO SCH (08:14)
[2020-11-07 08:42] LABS: ALBUMIN 3.1 g/dL (3.4-5.0); BILIRUBIN,TOTAL 0.9 mg/dL (0.2-1.0); CALCIUM, SERUM 8.6 mg/dL (8.5-10.1); MAGNESIUM 2.1 mg/dL (1.8-2.4); PHOSPHORUS 4.2 mg/dL (2.5-4.9); POTASSIUM 4.6 mmol/L (3.5-5.1); TOTAL PROTEIN, SERUM 7.2 g/dL (6.4-8.2)
[2020-11-07] MEDS: FUROSEMIDE 40 MG/4 ML VIAL IV SCH ×3 (09:00→16:34)
[2020-11-07] MEDS ORDERED: FUROSEMIDE 20 MG/2 ML VIAL IV SCH (09:00)
[2020-11-07] MEDS ORDERED: Medication Not On Formulary EA (Icosapent Ethyl (Vascepa) 2 CAP) PO SCH (09:00)
--- NOTE | 2020-11-07 10:00 | NUR ---
RN NOTES SEEN BY DR. VARELA TODAY AT BEDSIDE; FOR THORACENTESIS OF L LUNG TODAY.
--- NOTE | 2020-11-07 10:10 | NUR ---
RN NOTES PATIENT SEEN BY PEYTON BYRNE, FOR PT EVAL.
--- NOTE | 2020-11-07 10:30 | NUR ---
RN NOTES PATIENT SEEN BY DR. VASQUEZ W/ ORDERS NOTED. FERNANDO RT, MADE AWARE FOR BREATHING TREATMENT. LASIX ADMINISTERED INDICATED EARLIER.
--- NOTE | 2020-11-07 10:46 | NUR ---
RN NOTES PHLEBOTOMY AT BEDSIDE FOR BLOOD DRAW FOR TOPONIN LEVEL PER DR. VASQUEZ; RT AT BEDSIDE FOR BREATHING TX. GEORGE, FAMILY, AT BEDSIDE, MADE AWARE OF PLAN OF CARE FOR PATIENT.
[2020-11-07] MEDS: IPRATROPIUM NEB FS 0.5 MG/2.5 ML AMPUL.NEB NEB SCH ×4 (10:51→23:47)
[2020-11-07] MEDS: ALBUTEROL HALF STRENGTH 1.25 MG/3 ML VIAL.NEB NEB SCH ×4 (10:51→23:47)
--- NOTE | 2020-11-07 11:39 | NUR ---
RN NOTES TATA GAYTAN AT BEDSIDE FOR US-GUIDED THORACENTESIS OF L LUNG; KIM MOHR AT BEDSIDE ASSISTING PATIENT TO BED.
--- NOTE | 2020-11-07 12:05 | NUR ---
RN NOTES PLEURAL FLUID OUTPUT 900CC PER PRODUCT REPRESENTATIVE; SPECIMEN BOTTLE AT BEDSIDE.
[2020-11-07] MEDS: HYDROCODONE/APAP 10/325MG TABLET PO PRN ×2 (12:38→21:41)
--- NOTE | 2020-11-07 13:30 | NUR ---
RN NOTES LAB MADE AWARE OF COLLECTED PLEURAL FLUID SPECIMEN PLACED INSIDE REFRIGERATOR; WILL LOOM STARTER WHEN SAFETY ATTENDANT IS AVAILABLE.
[2020-11-07 16:00] VITALS: BP 116/62
--- NOTE | 2020-11-07 20:19 | NUR ---
TILE LAYER NOTES PATIENT A/OX3; FARSI SPEAKING. ON O2 VIA 2LPM VIA N/C TOLERATING WELL AT REST. SOB UPON ACTIVITY AND EXERTION. IV TO LAC #18G S/L; PATENT AND INTACT. PT S/P THORACENTESIS WITH 900 CC OUTPUT.SAFETY MEASURES IN PLACE: BED IN LOWEST LOCKED POSITION, SIDE RAILS UPX2, CALL LIGHT WITHIN EASY REACH, BED ALARMS ON. PATIENT IN STABLE CONDITION, WILL CONTINUE TO MONITOR.
[2020-11-07] MEDS: ENOXAPARIN SODIUM 40 MG/0.4 ML DISP.SYRIN SQ SCH (21:07)
[2020-11-08] VITALS: BP 133/52
[2020-11-08 04:00] VITALS: BP 114/62
[2020-11-08] MEDS: IPRATROPIUM NEB FS 0.5 MG/2.5 ML AMPUL.NEB NEB SCH ×2 (04:11→08:24)
[2020-11-08] MEDS: ALBUTEROL HALF STRENGTH 1.25 MG/3 ML VIAL.NEB NEB SCH ×2 (04:11→08:24)
[2020-11-08 06:00] LABS: BASOPHILS # (AUTO) 0.1 /CMM (0.0-0.2); EOSINOPHILS % (AUTO) 3.1 % (0.0-6.0); HEMATOCRIT 40 % (33-45); HEMOGLOBIN 13.3 g/dL (11.5-14.8); LYMPHOCYTES # (AUTO) 1.9 /CMM (0.8-4.8); LYMPHOCYTES % (AUTO) 25.4 % (20.0-44.0); MEAN CORPUSCULAR HGB CONC 33 g/dl (31.0-36.0); MEAN CORPUSCULAR VOLUME 93 fL (82-100); MONOCYTES # (AUTO) 0.8 /CMM (0.1-1.30); MONOCYTES % (AUTO) 10.3 % (2.0-12.0); NEUTROPHILS # (AUTO) 4.6 /CMM (1.8-8.9); NEUTROPHILS % (AUTO) 60.2 % (43.0-81.0); PLATELET COUNT (AUTO) 263 /CMM (150-450); RED BLOOD CELL COUNT(AUTO) 4.31 MIL/uL (4.0-5.2); WHITE BLOOD COUNT (AUTO) 7.7 K/uL (4.3-11.0)
--- NOTE | 2020-11-08 06:00 | NUR ---
BOND WRITER NOTES CONSENT OBTAINED FOR THORACENTESIS TODAY. PER PT PLEASE INFORM GABBY DAUGHTER OF SCHEDULED PROCEDURE. SHE DID NOT ANSWER LEFT HER A MESSAGE TO CALL US BACK AT HER EARLIEST CONVENIENCE. WILL CONTINUE TO MONITOR.
[2020-11-08 06:54] LABS: ALBUMIN 2.8 g/dL (3.4-5.0); CALCIUM, SERUM 8.4 mg/dL (8.5-10.1); CREATININE 1.2 mg/dL (0.6-1.3); MAGNESIUM 1.9 mg/dL (1.8-2.4); PHOSPHORUS 3.8 mg/dL (2.5-4.9); POTASSIUM 3.7 mmol/L (3.5-5.1); TOTAL PROTEIN, SERUM 6.5 g/dL (6.4-8.2)
--- NOTE | 2020-11-08 07:04 | NUR ---
RESEARCH AND INSIGHTS EXECUTIVE NOTES PATIENT A/OX3; FARSI SPEAKING. ON O2 VIA 2LPM VIA N/C TOLERATING WELL AT REST. SOB UPON ACTIVITY AND EXERTION. IV TO LAC #18G S/L; PATENT AND INTACT. PT S/P THORACENTESIS WITH 900 CC OUTPUT.SAFETY MEASURES IN PLACE: BED IN LOWEST LOCKED POSITION, SIDE RAILS UPX2, CALL LIGHT WITHIN EASY REACH, BED ALARMS ON. PATIENT IN STABLE CONDITION, WILL ENDORSE CARE TO DAY SHIFT NURSE.
--- NOTE | 2020-11-08 07:20 | NUR ---
RN NOTES PATIENT RESTING IN BED, AWAKE AND VERBALLY RESPONSIVE. A/O X3, FARSI SPEAKING, SPEAKS CROATIAN. ON O2 VIA 2LPM VIA N/C, NO DISTRESS NOTED. LAC #18G S/L PATENT AND INTACT. FOR SCHEDULED THORACENTESIS TODAY W/ CONSENT OBTAINED BY PREVIOUS SHIFT RN. SAFETY MEASURES IN PLACE. WILL CONTINUE TO MONITOR.
[2020-11-08 08:00] VITALS: BP 141/64
[2020-11-08] MEDS: ASPIRIN EC 81 MG TABLET.DR PO SCH (08:24)
--- NOTE | 2020-11-08 08:24 | NUR ---
RN NOTES SPOKE W/ DELIVERY PROFESSIONAL FOR THORACENTESIS PROCEDURE TODAY; WILL HOLD ASPIRIN TODAY PRIOR TO PROCEDURE.
[2020-11-08] MEDS: MAGNESIUM OXIDE 400 MG TABLET PO SCH (08:25)
[2020-11-08] MEDS: PANTOPRAZOLE 40 MG TABLET.DR PO SCH (08:25)
[2020-11-08] MEDS: DOCUSATE SODIUM 100 MG CAPSULE PO SCH ×2 (08:25→16:09)
[2020-11-08] MEDS: FUROSEMIDE 40 MG/4 ML VIAL IV SCH ×3 (08:25→15:41)
[2020-11-08] MEDS: CHOLECALCIFEROL 1,000 UNIT TABLET (VIT D3) PO SCH (08:25)
[2020-11-08] MEDS: POTASSIUM CHLORIDE 20 MEQ TAB.PRT.SR PO SCH ×3 (08:25→10:24)
[2020-11-08] MEDS: ATORVASTATIN 10 MG TABLET PO SCH (08:26)
[2020-11-08] MEDS: AMLODIPINE BESYLATE 5 MG TABLET PO SCH (08:27)
[2020-11-08] MEDS: METOPROLOL TARTRATE 50 MG TABLET PO SCH ×2 (08:27→20:18)
[2020-11-08] MEDS: LOSARTAN POTASSIUM 50 MG TABLET PO SCH (08:27)
--- NOTE | 2020-11-08 08:38 | NUR ---
RN NOTES SPOKE W/ TECHNICAL ACCOUNT MANAGER AND WAS INFORMED BY RADIOLOGIST THAT, BASED ON CXR, FLUID IS SMALL ENOUGH TO HOLD THORACENTESIS PROCEDURE FOR TODAY. DR. VARELA ALSO AWARE AND AGREED W/ PLAN.
--- NOTE | 2020-11-08 08:49 | NUR ---
PER DR. MENDENHALL PROCEDURE ON HOLD FOR NOW DUE TO NOT ADEQUATE AMOUNT OF FLUID. PT HAD LT SIDE THORACENTESIS ON 11/07/20. DR. MENDENHALL INFORMED ORDERING PHYSICIAN, DR. VARELA.
--- NOTE | 2020-11-08 09:20 | NUR ---
RN NOTES URINE SAMPLE COLLECTED FOR TESTING. SPECIMEN PLACED INSIDE REFRIGERATOR.
[2020-11-08 11:42] LABS: BILIRUBIN,URINE NEGATIVE (NEGATIVE); COLOR,URINE YELLOW (YELLOW); LEUKOCYTE ESTERASE ,URINE TRACE (NEGATIVE); NITRITE, URINE NEGATIVE (NEGATIVE); PH,URINE 6.5 (5.0-8.0); PROTEIN,URINE NEGATIVE (NEGATIVE); UGLUCOSE NEGATIVE (NEGATIVE); UROBILINOGEN,URINE 0.2 EU/dL (0.2)
[2020-11-08 11:53] LABS: CREATININE, URINE 33.7 MG/DL (30.0-125.0); URINE TOTAL PROTEIN 6.6 mg/dL (0-11.9)
[2020-11-08 12:28] LABS: BACTERIA,URINE None seen /HPF (None Seen); RBC,URINE NONE SEEN /HPF (0-2); SQUAMOUS EPITHELIAL CELL,UR Rare /HPF (None Seen); WBC,URINE 0-2 /HPF (0-3)
[2020-11-08 12:56] LABS: EOSINOPHIL,URINE None Seen
[2020-11-08 16:00] VITALS: BP 124/61
--- NOTE | 2020-11-08 16:30 | NUR ---
RN NOTES INFORMED BRENTON, PHARMACIST, ABOUT PATIENT'S VACEPA MEDICATION; DTR WILL BRING IT TOMORROW.
--- NOTE | 2020-11-08 18:10 | NUR ---
RN NOTES PATIENT RESTING IN BED, AWAKE AND VERBALLY RESPONSIVE. PREVIOUSLY SEEN AMBULATING TO THE BATHROOM, NO COMPLAINT OF DIZZINESS AT THIS TIME. OCCASIONALLY ABLE TO BREATH WITHOUT OXYGEN SUPPLEMENTATION, OTHERWISE CONTINUES ON O2 AT 2L/MIN VIA N/C, NO RESPIRATORY DISTRESS AT THIS TIME. JLUIENNE PIERRE, VISITED PATIENT AND UPDATED ON PLAN OF CARE FOR PATIENT. DUE MEDS GIVEN. SAFETY PRECAUTIONS MAINTAINED.
--- NOTE | 2020-11-08 19:50 | NUR ---
MS RN OPENING NOTE RECEIVED PT AWAKE IN BED. A/O X3, FARSI-SPEAKING, SPEAKS POLISH. PT ON 2 LPM O2 VIA NC SATS 98%. NO SOB OR S/S OF RESPIRATORY DISTRESS NOTED. IV ACCESS IN LAC #18 S/L, INTACT AND PATENT. SAFETY MEASURES MAINTAINED. BED IN LOWEST LOCKED POSITION, HOB ELEVATED, SIDE RAILS UP X2. CALL LIGHT AND TABLE WITHIN REACH. WILL CONTINUE WITH PLAN OF CARE.
[2020-11-08 20:00] VITALS: BP 140/60
[2020-11-08] MEDS: ENOXAPARIN SODIUM 40 MG/0.4 ML DISP.SYRIN SQ SCH (20:19)
--- NOTE | 2020-11-08 23:06 | NUR ---
PT C/O OF DIFFICULTY SLEEPING. PER PT REQUEST, ADMINISTERED RESTORIL 7.5 MG PO HS PRN FOR SLEEP. WILL REASSESS FOR SLEEP WITHIN 1 HOUR.
[2020-11-09 06:12] LABS: HEMATOCRIT 40 % (33-45); HEMOGLOBIN 13.3 g/dL (11.5-14.8); MEAN CORPUSCULAR HGB CONC 33 g/dl (31.0-36.0); MEAN CORPUSCULAR VOLUME 93 fL (82-100); PLATELET COUNT (AUTO) 256 /CMM (150-450); RED BLOOD CELL COUNT(AUTO) 4.34 MIL/uL (4.0-5.2); WHITE BLOOD COUNT (AUTO) 8.1 K/uL (4.3-11.0)
[2020-11-09 06:13] LABS: BASOPHILS # (AUTO) 0.1 /CMM (0.0-0.2); BASOPHILS % (AUTO) 0.7 % (0.0-2.0); EOSINOPHILS % (AUTO) 3.2 % (0.0-6.0); LYMPHOCYTES % (AUTO) 24.5 % (20.0-44.0); MONOCYTES % (AUTO) 11.9 % (2.0-12.0); NEUTROPHILS # (AUTO) 4.9 /CMM (1.8-8.9); NEUTROPHILS % (AUTO) 59.7 % (43.0-81.0)
--- NOTE | 2020-11-09 06:19 | NUR ---
MS RN CLOSING NOTE PT IS IN BED WITH EYES CLOSED, EASILY AROUSED. A/O X3, FARSI-SPEAKING, SPEAKS FIJIAN. PT ON 2 LPM O2 VIA NC SATS 97%. NO SOB OR S/S OF RESPIRATORY DISTRESS NOTED. IV ACCESS IN LAC #18 S/L, INTACT AND PATENT. ALL NEEDS HAVE BEEN MET. SAFETY PRECAUTIONS MAINTAINED AT ALL TIMES. BED IN LOWEST LOCKED POSITION, HOB ELEVATED, SIDE RAILS UP X2. CALL LIGHT AND TABLE WITHIN REACH. WILL ENDORSE TO ONCOMING NURSE FOR YONIS.
[2020-11-09 07:06] LABS: ALANINE AMINOTRANSFERASE 23 U/L (12-78); ALBUMIN 2.9 g/dL (3.4-5.0); ALKALINE PHOSPHATASE 49 U/L (46-116); ASPARTATE AMINOTRANSFERASE 23 U/L (15-37); BILIRUBIN,TOTAL 0.9 mg/dL (0.2-1.0); CALCIUM, SERUM 8.3 mg/dL (8.5-10.1); CARBON DIOXIDE 29 mmol/L (21-32); CHLORIDE 101 mmol/L (98-107); CREATININE 1.5 mg/dL (0.6-1.3); GLUCOSE 97 mg/dL (74-106); PHOSPHORUS 3.8 mg/dL (2.5-4.9); SODIUM SERUM 137 mmol/L (136-145); TOTAL PROTEIN, SERUM 6.7 g/dL (6.4-8.2); UREA NITROGEN, BLOOD 29 mg/dL (7-18)
[2020-11-09 07:27] LABS: CREATINE KINASE, TOTAL 55 U/L (26-192)
[2020-11-09 08:00] VITALS: BP 106/54
--- NOTE | 2020-11-09 08:00 | NUR ---
RN OPENING NOTE PT SLEEPING IN BED. AROUSES TO NAME. A/O X4 AND SAMI SPEAKING. NO COMPLAINT OF PAIN OR NAUSEA. ON 2L NC WITH NO SOB OR RESPIRATORY DISTRESS PRESENT. NO COLD PATCHER. NO EDEMA PRESENT. AMBULATORY WITH STANDBY ASSIST. SKIN IS INTACT. IV PRESENT L AC 18 AND FLUSHES WELL. SAFETY MEASURES IN PLACE. SIDE RAILS RAISED. BED LOWERED. CALL LIGHT WITHIN REACH. WILL CONTINUE TO MONITOR.
[2020-11-09] MEDS: ASPIRIN EC 81 MG TABLET.DR PO SCH ×2 (09:00→09:07)
[2020-11-09] MEDS: DOCUSATE SODIUM 100 MG CAPSULE PO SCH ×3 (09:00→16:15)
[2020-11-09] MEDS: CHOLECALCIFEROL 1,000 UNIT TABLET (VIT D3) PO SCH (09:07)
[2020-11-09] MEDS: ATORVASTATIN 10 MG TABLET PO SCH (09:07)
[2020-11-09] MEDS: MAGNESIUM OXIDE 400 MG TABLET PO SCH (09:07)
[2020-11-09] MEDS: PANTOPRAZOLE 40 MG TABLET.DR PO SCH (09:07)
[2020-11-09] MEDS: AMLODIPINE BESYLATE 5 MG TABLET PO SCH (09:08)
[2020-11-09] MEDS: LOSARTAN POTASSIUM 50 MG TABLET PO SCH (09:08)
[2020-11-09] MEDS: METOPROLOL TARTRATE 50 MG TABLET PO SCH ×2 (10:06→20:40)
[2020-11-09] MEDS ORDERED: FURO-144 PO (14:50)
[2020-11-09 16:00] VITALS: BP 108/50
--- NOTE | 2020-11-09 16:45 | NUR ---
RN NOTE PT TAKEN OFF OF 3L NC O2 TO SEE TOLERANCE WITHOUT OXYGEN. WILL ASSESS O2 SAT IN 15 MINUTES. WILL CONTINUE TO MONITOR.
--- NOTE | 2020-11-09 17:00 | NUR ---
RN NOTE PT NOTED TO HAVE SOB. O2 SAT OF 88%. MD NOTIFIED. PT TO STAY ADDITIONAL NIGHT AT HOSPITAL. WILL CONTINUE TO MONITOR.
--- NOTE | 2020-11-09 18:15 | NUR ---
RN CLOSING NOTE PT AWAKE IN BED. A/O X4 AND [place]ER[place] LEONEAN SPEAKING. NO COMPLAINT OF PAIN OR NAUSEA. ON 2L NC WITH NO SOB OR RESPIRATORY DISTRESS PRESENT. NO CLAIMS ADJUSTER CROP. NO EDEMA PRESENT. AMBULATORY WITH STANDBY ASSIST. SKIN IS INTACT. IV PRESENT L AC 18 AND FLUSHES WELL. ROUTINE MEDS GIVEN. SAFETY MEASURES IN PLACE. SIDE RAILS RAISED. BED LOWERED. CALL LIGHT WITHIN REACH. REPORT TO BE GIVEN TO NIGHT NURSE FOR YONIS.
--- NOTE | 2020-11-09 19:18 | NUR ---
MS RN OPENING NOTE PATIENT A/OX3; FARSI SPEAKING. ON O2 VIA 2LPM VIA N/C TOLERATING WELL. IV TO LAC #18G S/L; PATENT AND INTACT. DENIES PAIN OR DISCOMFORT AT THIS TIME. SAFETY MEASURES IN PLACE: BED IN LOWEST LOCKED POSITION, SIDE RAILS UPX2, CALL LIGHT WITHIN EASY REACH, BED ALARMS ON. PATIENT IN STABLE CONDITION, NO DISTRESS NOTED. WILL CONTINUE PLAN OF CARE.
[2020-11-09] MEDS: FUROSEMIDE 40 MG TABLET PO SCH (19:33)
[2020-11-09 20:00] VITALS: BP 107/43
[2020-11-09] MEDS: ENOXAPARIN SODIUM 40 MG/0.4 ML DISP.SYRIN SQ SCH (20:42)
--- NOTE | 2020-11-09 21:22 | NUR ---
PATIENT WENT DOWN TO RADIOLOGY FOR CT ABD PELVIS FOR PLEURAL EFFUSION; HX LUNG CANCER. PATIENT ON 2L O2 VIA N/C.
--- NOTE | 2020-11-09 21:38 | NUR ---
MS RN NOTE PATIENT RETURNED TO FLOOR FROM RADIOLOGY.
--- NOTE | 2020-11-09 23:45 | NUR ---
MS RN NOTE RECEIVED REPORT FROM SARA TORRES FOR TRANSFER OF CARE. PATIENT CURRENTLY SLEEPING IN BED, NO S/S OF DISTRESS OR SHORTNESS OF BREATH NOTED. LEFT AC #18G SALINE LOCKED. PATIENT AMBULATORY WITH BRP. WILL CONTINUE TO MONITOR. WILL CONTINUE PLAN OF CARE
--- NOTE | 2020-11-10 06:39 | NUR ---
MS CLOSING NOTE PATIENT AWAKE IN BED, ALERT/ORIENTED X 3, PATIENT ABLE TO MAKE NEEDS KNOWN, PRIMARY LANGUAGE FARSI BUT SPEAKS SOME [place]. NO COMPLAINTS OF PAIN OR DISCOMFORT AT THIS TIME. PATIENT ON 2 LPM OF OXYGEN, NO S/S OF DISTRESS OR SHORTNESS OF BREATH NOTED. LEFT AC #18G SALINE LOCKED. PATIENT NEEDS MET THROUGHOUT SHIFT. SAFETY MEASURES IN PLACE, CALL LIGHT AND TABLE WITHIN REACH, BED ALARM ON, BED LOCKED IN LOWEST POSITION. WILL ENDORSE TO DAY SHIFT NURSE FOR CONTINUITY OF CARE
--- NOTE | 2020-11-10 07:03 | NUR ---
MS RN OPENING NOTE RECEIVED PATIENT RESTING IN BED. PATIENT IS A/OX3; ABLE TO MAKE NEEDS KNOWN. PATIENT IS BREATHING EVENLY AND NONLABORED ON O2 VIA 2LPM VIA N/C TOLERATING WELL, NO DISTRESS NOTED. IV ACCESS TO LAC #18G S/L; PATENT AND INTACT. DENIES PAIN OR DISCOMFORT AT THIS TIME. SAFETY MEASURES IN PLACE: BED IN LOWEST LOCKED POSITION, SIDE RAILS UPX2, CALL LIGHT WITHIN REACH, BED ALARMS ON. WILL CONTINUE TO MONITOR.
[2020-11-10] MEDS: PANTOPRAZOLE 40 MG TABLET.DR PO SCH (07:38)
[2020-11-10 08:00] VITALS: BP 145/69
[2020-11-10 08:06] LABS: PTH, INTACT 106 pg/mL (15-65)
[2020-11-10] MEDS: CHOLECALCIFEROL 1,000 UNIT TABLET (VIT D3) PO SCH (08:11)
[2020-11-10] MEDS: MAGNESIUM OXIDE 400 MG TABLET PO SCH (08:11)
[2020-11-10] MEDS: FUROSEMIDE 40 MG TABLET PO SCH (08:11)
[2020-11-10] MEDS: DOCUSATE SODIUM 100 MG CAPSULE PO SCH ×2 (08:11→16:03)
[2020-11-10] MEDS: ASPIRIN EC 81 MG TABLET.DR PO SCH (08:11)
[2020-11-10] MEDS: AMLODIPINE BESYLATE 5 MG TABLET PO SCH (08:12)
[2020-11-10] MEDS: ATORVASTATIN 10 MG TABLET PO SCH (08:12)
[2020-11-10] MEDS: LOSARTAN POTASSIUM 50 MG TABLET PO SCH (08:12)
[2020-11-10] MEDS: METOPROLOL TARTRATE 50 MG TABLET PO SCH ×2 (08:13→21:23)
--- NOTE | 2020-11-10 09:09 | NUR ---
RN NOTE PT TAKEN OFF OF 2L NC O2 TO SEE TOLERANCE WITHOUT OXYGEN AND TO TRANSITION TO ROOM AIR. WILL ASSESS O2 SAT IN 15 MINUTES. WILL CONTINUE TO MONITOR.
--- NOTE | 2020-11-10 09:21 | NUR ---
RN NOTE RECHECKED O2 SATURATION, O2 SATURATION BETWEEN 90-94%, WILL RECHECK AND NOTIFY MD IF ANY CHANGES.
--- NOTE | 2020-11-10 09:49 | NUR ---
RN NOTE WENT TO REASSESS O2 SATURATION. PATIENT COMPLAINED OF SHORTNESS OF BREATH AND DYSPNEA. RECHECKED O2 SATURATION, 87%. RESTARTED O2, WENT BACK UP TO 92%. NOTIFIED MD. WILL CONTINUE TO MONITOR
--- NOTE | 2020-11-10 10:42 | NUR ---
RN NOTE MD ORDER TO HOLD DISCHARGE DUE TO DESATURATION WHEN TIRTATING O2 USE
[2020-11-10] MEDS ORDERED: ONDANSETRON HCL/PF 4 MG/2 ML VIAL IV ONE (11:00)
--- NOTE | 2020-11-10 11:15 | NUR ---
RN NOTE PATIENT STATED HER IV SITE WAS BLEEDING. UPON FURTHER ASSESSMENT IV WAS DISLODGED. PATIENT STATED SHE WAS SCRATCHING HER ARM AND IT CAME OUT. MD NOTIFIED. WILL CONTINUE TO MONITOR
[2020-11-10 12:02] LABS: ABG BASE EXCESS 5.3 mmol/L; ABG OXYGEN SATURATION 92.2 % (92.0-98.5); ABG PH 7.444 (7.350-7.450); AaDO2 34.8 mmHg; COHb 0.5 % (0.5-1.5); MetHb 0.4 % (0.0-1.5); O2Hb 91.4 % (94.0-97.0); SITE, ABG Right Radial; VENT MODE, BG room air
[2020-11-10 16:00] VITALS: BP 104/51
--- NOTE | 2020-11-10 18:50 | NUR ---
MS RN CLOSING NOTE PATIENT RESTING IN BED. PATIENT IS A/OX3; ABLE TO MAKE NEEDS KNOWN. PATIENT IS BREATHING EVENLY AND NONLABORED ON O2 VIA 2LPM VIA N/C TOLERATING WELL, NO DISTRESS NOTED. NO IV ACCESS @ THIS TIME, MD AWARE. DENIES PAIN OR DISCOMFORT AT THIS TIME. ALL MEDICATIONS GIVEN ORDERED. SAFETY MEASURES IN PLACE: BED IN LOWEST LOCKED POSITION, SIDE RAILS UPX2, CALL LIGHT WITHIN REACH, BED ALARMS ON. WILL CONTINUE TO MONITOR.
--- NOTE | 2020-11-10 19:30 | NUR ---
MS OPENING NOTE PATIENT RESTING IN BED, ALERT/ORIENTED X 3, PATIENT ABLE TO MAKE NEEDS KNOWN, PRIMARY LANGUAGE FARSI BUT SPEAKS SOME UPPER [place]BI[place]. NO COMPLAINTS OF PAIN OR DISCOMFORT AT THIS TIME. PATIENT ON 2 LPM OF OXYGEN, NO S/S OF DISTRESS OR SHORTNESS OF BREATH NOTED. NO IV NOTED, MD AWARE. SAFETY MEASURES IN PLACE, CALL LIGHT AND TABLE WITHIN REACH, BED ALARM ON, BED LOCKED IN LOWEST POSITION. WILL CONTINUE PLAN OF CARE. WILL CONTINUE TO MONITOR
[2020-11-10 19:59] VITALS: BP 119/53
[2020-11-10] MEDS: ENOXAPARIN SODIUM 40 MG/0.4 ML DISP.SYRIN SQ SCH (21:25)
--- NOTE | 2020-11-11 07:00 | NUR ---
MS RN CLOSING NOTES PATIENT RESTING IN BED, ALERT/ORIENTED X 3, PATIENT ABLE TO MAKE NEEDS KNOWN, PRIMARY LANGUAGE FARSI BUT SPEAKS SOME [place]. NO COMPLAINTS OF PAIN OR DISCOMFORT AT THIS TIME. PATIENT ON 2 LPM OF OXYGEN, NO S/S OF DISTRESS OR SHORTNESS OF BREATH NOTED. MEDICATIONS GIVEN ORDERED, PATIENT NEEDS MET THROUGHOUT SHIFT. SAFETY MEASURES IN PLACE, CALL LIGHT AND TABLE WITHIN REACH, BED ALARM ON, BED LOCKED IN LOWEST POSITION. WILL ENDORSE TO DAY SHIFT NURSE FOR CONTINUITY OF CARE
--- NOTE | 2020-11-11 07:05 | NUR ---
MS RN OPENING NOTE RECEIVED PATIENT RESTING IN BED. PATIENT IS A/OX3; ABLE TO MAKE NEEDS KNOWN. PATIENT IS BREATHING EVENLY AND NONLABORED ON O2 VIA 2LPM VIA N/C TOLERATING WELL, NO DISTRESS NOTED. NO IV ACCESS @ THIS TIME, MD AWARE. DENIES PAIN OR DISCOMFORT AT THIS TIME. SAFETY MEASURES IN PLACE: BED IN LOWEST LOCKED POSITION, SIDE RAILS UPX2, CALL LIGHT WITHIN REACH, BED ALARMS ON. WILL CONTINUE TO MONITOR.
[2020-11-11] MEDS: PANTOPRAZOLE 40 MG TABLET.DR PO SCH (07:30)
[2020-11-11 08:00] VITALS: BP 125/56
[2020-11-11] MEDS: CHOLECALCIFEROL 1,000 UNIT TABLET (VIT D3) PO SCH (08:34)
[2020-11-11] MEDS: ASPIRIN EC 81 MG TABLET.DR PO SCH (08:34)
[2020-11-11] MEDS: MAGNESIUM OXIDE 400 MG TABLET PO SCH (08:35)
[2020-11-11] MEDS: ATORVASTATIN 10 MG TABLET PO SCH (08:35)
[2020-11-11] MEDS: FUROSEMIDE 40 MG TABLET PO SCH (08:35)
[2020-11-11] MEDS: LOSARTAN POTASSIUM 50 MG TABLET PO SCH (08:35)
[2020-11-11] MEDS: DOCUSATE SODIUM 100 MG CAPSULE PO SCH (08:35)
[2020-11-11] MEDS: AMLODIPINE BESYLATE 5 MG TABLET PO SCH (08:35)
[2020-11-11 08:36] VITALS: BP 157/73
[2020-11-11] MEDS: METOPROLOL TARTRATE 50 MG TABLET PO SCH (08:36)
--- NOTE | 2020-11-11 10:00 | NUR ---
RN NOTE SPO2 87% ON ROOM AIR AT REST.
[2020-11-11 11:49] LABS: BASOPHILS % (AUTO) 0.5 % (0.0-2.0); EOSINOPHILS % (AUTO) 1.7 % (0.0-6.0); HEMATOCRIT 39 % (33-45); HEMOGLOBIN 12.7 g/dL (11.5-14.8); LYMPHOCYTES # (AUTO) 1.2 /CMM (0.8-4.8); LYMPHOCYTES % (AUTO) 15.9 % (20.0-44.0); MEAN CORPUSCULAR HGB CONC 33 g/dl (31.0-36.0); MEAN CORPUSCULAR VOLUME 94 fL (82-100); MONOCYTES # (AUTO) 0.8 /CMM (0.1-1.30); MONOCYTES % (AUTO) 10.8 % (2.0-12.0); NEUTROPHILS # (AUTO) 5.4 /CMM (1.8-8.9); NEUTROPHILS % (AUTO) 71.1 % (43.0-81.0); PLATELET COUNT (AUTO) 260 /CMM (150-450); RED BLOOD CELL COUNT(AUTO) 4.12 MIL/uL (4.0-5.2); WHITE BLOOD COUNT (AUTO) 7.5 K/uL (4.3-11.0)
[2020-11-11 12:06] LABS: *SPE A/G RATIO 0.8 (0.7-1.7); *SPE ALBUMIN 2.8 g/dL (2.9-4.4); *SPE ALPHA-1-GLOBULIN 0.3 g/dL (0.0-0.4); *SPE ALPHA-2-GLOBULIN 0.9 g/dL (0.4-1.0); *SPE BETA GLOBULIN 0.9 g/dL (0.7-1.3); *SPE GLOBULIN, TOTAL 3.3 g/dL (2.2-3.9); *SPE M-SPIKE Not Observed g/dL (Not Observed); *SPEGAMMA GLOBULIN 1.1 g/dL (0.4-1.8)
[2020-11-11 12:59] LABS: CALCIUM, SERUM 8.5 mg/dL (8.5-10.1); CARBON DIOXIDE 28 mmol/L (21-32); CHLORIDE 100 mmol/L (98-107); CREATININE 2.4 mg/dL (0.6-1.3); GLUCOSE 98 mg/dL (74-106); MAGNESIUM 2.6 mg/dL (1.8-2.4); POTASSIUM 4.2 mmol/L (3.5-5.1); SODIUM SERUM 135 mmol/L (136-145); UREA NITROGEN, BLOOD 49 mg/dL (7-18)
--- NOTE | 2020-11-11 13:35 | NUR ---
MS SCUBA DIVE TRAINING INSTRUCTOR NOTE RECEIVED DISCHARGE ORDER. PATIENT IS A/OX3; PATIENT IS BREATHING EVENLY AND NONLABORED ON O2 VIA 2LPM VIA N/C TOLERATING WELL, NO DISTRESS NOTED. DISCHARGE INSTRUCTIONS WERE GIVEN TO PATIENT BOTH WRITTEN AND VERBALLY. PATIENT AND DAUGHTER VERBALIZED UNDERSTANDING. ID BAND WAS REMOVED. PATIENT LEFT WITH OXYGEN VIA PRIVATE CAR IN STABLE CONDITION.
== END 2020-11-11 13:35 | disposition home or self-care (01) | DRG 291 ==
LOC: ER 18:05 → TELE 21:09 → MED 11-07 10:03 → TELE 11-07 10:03 → MED 11-08 08:37
PROVIDERS: ADMIT Internal Medicine; ATTEND Nurse Practitioner Acute Care
PROC: 0W9B3ZZ Drainage of Left Pleural Cavity, Percutaneous Approach (ICD-10-PCS; principal; 2020-11-07)
DX: I11.0 Hypertensive heart disease with heart failure (principal); J96.01 Acute respiratory failure with hypoxia; N17.0 Acute kidney failure with tubular necrosis; D68.59 Other primary thrombophilia; J90 Pleural effusion, not elsewhere classified; E78.5 Hyperlipidemia, unspecified; K59.00 Constipation, unspecified; Z20.822 Contact with and (suspected) exposure to COVID-19; I50.33 Acute on chronic diastolic (congestive) heart failure; M19.90 Unspecified osteoarthritis, unspecified site; Z85.118 Personal history of other malignant neoplasm of bronchus and lung; Z87.891 Personal history of nicotine dependence; Z90.2 Acquired absence of lung [part of]; Z96.649 Presence of unspecified artificial hip joint; R94.31 Abnormal electrocardiogram [ECG] [EKG]; I27.20 Pulmonary hypertension, unspecified; N13.9 Obstructive and reflux uropathy, unspecified; E04.1 Nontoxic single thyroid nodule; E66.01 Morbid (severe) obesity due to excess calories; I35.2 Nonrheumatic aortic (valve) stenosis with insufficiency
CPT/HCPCS: 36415; 36600; 71045-TC; 76536-TC; 80048-TC; 80053-TC; 80061-TC; 80076-TC; 81001; 82378; 82550-TC; 82570-TC; 83615-TC; 83735-TC; 83880; 83970; 84100-TC; 84155; 84155-TC; 84165; 84300-TC; 84439-TC; 84443-TC; 84484-TC; 85025-TC; 85378-TC; 85730-TC; 86800; 87070-TC; 87075-TC; 87081-TC; 87102-TC; 89051-TC; 93307-TC; 93970-TC; 94799-TC; 97112-TC; 97116-TC; 97530-TC; C9803; G0378; J1650; J1940; J2405; J7050; Q9967

== ENCOUNTER 2020-12-19 12:46 | Outpatient (CLI) | payer MEDICARE, OTHER ==
[~2020-12-19 12:46] MED LIST changes: +AMLO-212 PO; -Amox/Clavulanate PO; +CHOL200059 PO; +CLON0.1T PO; +FURO-144 PO; +ICOS1CAP PO; +IRBE300T19 PO; +MAGN400T26 PO; +NEBI10TA2 PO; -TRAM50TA PO; -VALS40TA4 PO
[2020-12-19 13:32] LABS: ABG BASE EXCESS 0.7 mmol/L; ABG OXYGEN SATURATION 94.6 % (92.0-98.5); ABG PCO2 39.2 mmHg (35.0-45.0); ABG PH 7.423 (7.350-7.450); ABG PO2 73.6 mmHg (75.0-100.0); AaDO2 29.2 mmHg; COHb 0.9 % (0.5-1.5); MetHb 0.2 % (0.0-1.5); O2Hb 93.6 % (94.0-97.0); SITE, ABG Right Brachial; VENT MODE, BG ROOM AIR
== END 2020-12-19 23:59 | disposition home or self-care (01) ==
LOC: RT 12:46
DX: R06.02 Shortness of breath (principal)
CPT/HCPCS: 36600; 82803-TC

== ENCOUNTER 2022-09-30 09:19 | Emergency (ER) | payer MEDICARE, OTHER ==
[~2022-09-30] VITALS: Ht 142.2 cm; Wt 55.8 kg
[2022-09-30 10:32] LABS: CALCIUM, SERUM 9.3 mg/dL (8.5-10.1); CARBON DIOXIDE 25 mmol/L (21-32); CHLORIDE 102 mmol/L (98-107); CREATININE 1.4 mg/dL (0.6-1.3); GLUCOSE 90 mg/dL (74-106); POTASSIUM 4.8 mmol/L (3.5-5.1); SODIUM SERUM 137 mmol/L (136-145); UREA NITROGEN, BLOOD 44 mg/dL (7-18)
[2022-09-30 10:44] LABS: ALANINE AMINOTRANSFERASE 25 U/L (12-78); ALBUMIN 3.3 g/dL (3.4-5.0); ALKALINE PHOSPHATASE 60 U/L (46-116); ASPARTATE AMINOTRANSFERASE 35 U/L (15-37); BILIRUBIN,DIRECT 0.1 mg/dL (0.0-0.2); BILIRUBIN,TOTAL 0.9 mg/dL (0.2-1.0); TOTAL PROTEIN, SERUM 7.8 g/dL (6.4-8.2)
[2022-09-30 10:57] LABS: BASOPHILS # (AUTO) 0.1 K/uL (0.0-0.2); BASOPHILS % (AUTO) 0.6 % (0.0-2.0); EOSINOPHILS % (AUTO) 1.4 % (0.0-6.0); HEMATOCRIT 42 % (33-45); HEMOGLOBIN 13.8 g/dL (11.5-14.8); LYMPHOCYTES # (AUTO) 1.3 K/uL (0.8-4.8); LYMPHOCYTES % (AUTO) 15.6 % (20.0-44.0); MEAN CORPUSCULAR HGB CONC 33 g/dl (31.0-36.0); MEAN CORPUSCULAR VOLUME 90 fL (82-100); MONOCYTES # (AUTO) 0.7 K/uL (0.1-1.30); MONOCYTES % (AUTO) 8.2 % (2.0-12.0); NEUTROPHILS # (AUTO) 6.3 K/uL (1.8-8.9); NEUTROPHILS % (AUTO) 74.2 % (43.0-81.0); PLATELET COUNT (AUTO) 230 K/uL (150-450); RED BLOOD CELL COUNT(AUTO) 4.64 MIL/uL (4.0-5.2); WHITE BLOOD COUNT (AUTO) 8.5 K/uL (4.3-11.0)
[2022-09-30] MEDS ORDERED: FUROSEMIDE 40 MG/4 ML VIAL IV ONE (11:00)
--- NOTE | 2022-09-30 11:00 | NUR ---
BIB CAREGIVER C/O SOB X 1 WEEK. "MY DOCTOR SAID MY LUNGS HAVE FLUID". AMBULATORY, PLACED IN BED, AAOX4, BREATHING EVEN AND UNLABORED SATURATING AT 97%RA.
[2022-09-30] MEDS ORDERED: FUROSEMIDE 40 MG/4 ML VIAL ONE (11:05)
--- NOTE | 2022-09-30 11:30 | NUR ---
PATIENT SINGED CONSENT FOR THORACENTESIS
--- NOTE | 2022-09-30 11:34 | NUR ---
U/S TECH AT BEDSIDE
--- NOTE | 2022-09-30 12:10 | NUR ---
IV removed. Catheter intact and site benign. Pressure and 4x4 applied to site. No bleeding noted.Patient discharged to home in stable condition. Written and verbal after care instructions given. Patient verbalizes understanding of instruction.
[2022-09-30 12:20] VITALS: BP 140/75
== END 2022-09-30 12:10 | disposition home or self-care (01) ==
LOC: ER 09:26
DX: J90 Pleural effusion, not elsewhere classified (principal); I50.9 Heart failure, unspecified; E78.00 Pure hypercholesterolemia, unspecified; Z98.890 Other specified postprocedural states; Z79.899 Other long term (current) drug therapy; Z79.82 Long term (current) use of aspirin
CPT/HCPCS: 99291; 96374; 93005; 71045; 76604; 85025; 80048; 80076; 36415; 84484; 85730; 83880; J1940